=== PATIENT | male | born 2000 | race Caucasian/White ===

== ENCOUNTER 2021-12-28 20:37 | Emergency (ER) | payer MEDICAID ==
[~2021-12-28] VITALS: Ht 177.8 cm; Wt 84.0 kg
[2021-12-28 20:49] VITALS: BP 110/70
[2021-12-28] MEDS ORDERED: TETANUS, DIPHTHERIA, PERTUSSIS VAC/PF 0.5ML (>10YR OLD) IM ONE (21:30)
[2021-12-28] MEDS ORDERED: BACITRACIN ZINC OINT UDPKT TOP ONE (21:30)
[2021-12-28] MEDS ORDERED: ONDANSETRON 4MG ODT PO ONE (23:00)
[2021-12-29] MEDS ORDERED: AMOX-494 MT (00:30)
== END 2021-12-29 01:23 | disposition home or self-care (01) ==
LOC: ER 20:37
DX: R51.9 Headache, unspecified (principal); I10 Essential (primary) hypertension
CPT/HCPCS: 70450; 73130; 90471; 90715; 99284; Q0162